=== PATIENT | female | born 1990 | race Hispanic/Latino ===

== ENCOUNTER 2016-05-13 18:47 | Emergency (ER) | payer OTHER ==
[~2016-05-13] VITALS: Ht 152.4 cm; Wt 52.6 kg
[~2016-05-13 18:47] MED LIST: CIPRO500 M1 PO; PYRIDIUM200 M1 PO
--- NOTE | 2016-05-13 19:54 | ED INFLUENZA/URI COMPLAINT ---
History of Present Illness General Chief Complaint: General Adult Stated Complaint: ?; FLU SYMPTOMS Source: patient Exam Limitations: language barrier Vital Signs & Intake/Output Vital Signs & Intake/Output Vital Signs Date Time Temp Pulse Resp B/P Pulse O2 O2 Flow FiO2 Ox Delivery Rate 05/13 2143 100.8 99 16 118/67 96 Room Air 05/13 2119 98 Room Air 05/13 1911 100.6 116 20 123/73 97 Room Air Allergies Coded Allergies: aspirin (Mild, ITCHING 05/13/16) Reconcile Medications Oseltamivir Phosphate (Tamiflu) 75 MG CAPSULE 1 CAP PO BID influenza Triage Note: TRIAGE: PT TO ER WITH C/C RUNNY NOSE, COUGHING AND BODY ACHES. COUGH HAS BEEN NON PRODUCTIVE. ONSET OF S/S WEDNESDAY. PT IS CURRENTLY , ?3-4 WEEKS , HAD +HOME TEST YESTERDAY. LMP 04/11/2016. /M1. Triage Nurses Notes Reviewed? yes Onset: Abrupt Duration: day(s): Timing: recent history Severity: moderate, severe No Modifying Factors: none : Yes Patient currently breastfeeds: No HPI: 26-year-old female comes into emergency room with complaints of runny nose congestion fever chills body aches cough has been going on for the past couple days. Patient reports that she also took a test yesterday that was positive. Patient comes in for further evaluation requesting ultrasound and blood work. Denies any abdominal pain and vaginal discharge or leakage of fluid. Denies any other associated symptoms. (INGRID HENSLEY) Past History Travel History Traveled to [place] past 21 day No Medical History Any Pertinent Medical History? 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 No (INGRID HENSLEY) Review of Systems Review of Systems Constitutional: Reports: see HPI. EENTM: Reports: see HPI. Respiratory: Reports: see HPI. Cardiovascular: Reports: no symptoms. GI: Reports: no symptoms. Genitourinary: Reports: no symptoms. Musculoskeletal: Reports: no symptoms. Skin: Reports: no symptoms. Neurological/Psychological: Reports: no symptoms. Hematologic/Endocrine: Reports: no symptoms. Immunologic/Allergic: Reports: no symptoms. All Other Systems: Reviewed and Negative (INGRID HENSLEY) Physical Exam Physical Exam General Appearance: well developed/nourished, no apparent distress, alert Head: atraumatic, normal appearance Eyes: Bilateral: normal appearance, EOMI. Ears, Nose, Throat: normal ENT inspection, moist mucous membrane Neck: normal inspection, full range of motion Respiratory: normal breath sounds, no respiratory distress Cardiovascular: regular rate/rhythm Gastrointestinal: normal bowel sounds, soft, non-tender Back: normal inspection Extremities: normal inspection, normal range of motion Neurologic/Psych: awake, alert, oriented x 3, normal gait, normal mood/affect Skin: intact, normal color Core Measures Severe Sepsis Present: No Septic Shock Present: No (INGRID HENSLEY) Progress Differential Diagnosis: influenza, meningitis, neutropenia, otitis, pneumonia, pharyngitis, sinusitis, ectopic , intrauterine , miscarriage, Plan of Care: Orders Procedure Date/time Status Add-on Test (ER Only) 05/13 2133 Active URINALYSIS 05/13 210 Complete URINE 05/13 2010 Complete HUMAN BETA HCG TITRE 05/13 2003 Complete COMPREHENSIVE METABOLIC PANEL 05/13 2003 Complete CBC WITHOUT DIFFERENTIAL 05/13 2003 Complete RHOGAM WORK-UP 05/13 2003 Complete RAPID VIRAL INFLUENZA A 05/13 1904 Complete Laboratory Tests 05/13/16 2110: Anion Gap 12, Estimated GFR > 60, BUN/Creatinine Ratio 6.7 L, Glucose 93, Calcium 8.8, Total Bilirubin 0.3, AST 19, ALT 29, Alkaline Phosphatase 68, Total Protein 7.5, Albumin 4.2, Globulin 3.3, Albumin/Globulin Ratio 1.3, Beta HCG, Quant 746.2, CBC w Diff NO MAN DIFF REQ, RBC 4.27, MCV 85.1, MCH 29.0, RDW 13.2, MPV 9.6, Gran % 78.8 H, Lymphocytes % 12.0 L, Monocytes % 9.0, Eosinophils % 0 , Basophils % 0.2, Absolute Granulocytes 3.8, Absolute Lymphocytes 0.6 L, Absolute Monocytes 0.4, Absolute Eosinophils 0, Absolute Basophils 0, PUBS MCHC 34.1 05/13/162100: Urinalysis LIGHT H, Urine Color YEL, Urine Clarity HAZY H, Urine pH 7.0, Ur Specific [place] 1.010, Urine Protein NEG, Urine Ketones NEG, Urine Nitrite NEG, Urine Bilirubin NEG, Urine Urobilinogen 0.2, Ur Leukocyte Esterase SMALL H, Ur Microscopic SEDIMENT EXAMINED, Urine RBC 3-5, Urine WBC 3-5 H, Ur Epithelial Cells MOD H, Urine Hemoglobin LARGE H, Urine Glucose NEG, Urine Test POSITIVE Diagnostic Imaging: Viewed by Me: Ultrasound. Discussed w/RAD: Ultrasound. Radiology Impression: SERVICE DATE: 05/13/16 EXAM TYPE: US - US TRANSVAG EXAMINATION: ULTRASOUND PELVIC, COMPLETE CLINICAL INFORMATION: Positive test yesterday. Patient requests ultrasound. COMPARISON: Pelvic ultrasound 04/07/2011. TECHNIQUE: Transvaginal: Used to better visualize pelvic structures Transabdominal: Not adequate for visualization Spectral Doppler and color Doppler exam was utilized. LMP: Uncertain FINDINGS: UTERUS: No intrauterine . Uterus is unremarkable. Uterus measures 7.8 x 4.3 x 4.5 cm. Cervical length 2.9 cm. Endometrial thickness 0.75 cm. ADNEXA: Ovarian vascularity:Doppler demonstrates both arterial and venous vascular flow in the right and left ovary. No evidence of ovarian torsion. Right Ovary: Corpus luteum cyst in right ovary measuring 0.9 x 0.7 x 1.2 cm. The right ovary measures 3.5 x 1.7 x 2.3 cm. Volume 7 mL. Left Ovary: Unremarkable. Left measures 1.9 x 1.1 x 1.8 cm. Cul-de-sac: No Fluid IMPRESSION: Normal ultrasound of pelvis. No intrauterine . DICTATED BY: TOAN DUVALL MD DATE/TIME DICTATED:05/13/162249 WOUND CARE COORDINATOR:VICTORIA DATE/TIME TRANSCRIBED:05/13/162249 Initial ED EKG: none (INGRID HENSLEY) Departure Departure Disposition: HOME OR SELF CARE Condition: Stable Clinical Impression Primary Impression: Influenza Secondary Impressions: Positive test Referrals: KIM ORNELAS,ERIKA Bullock PATIENT HAS NO PRIMARY CARE DR (PCP/Family) Additional Instructions: Take Tamiflu as prescribed and Tylenol. Rest. Drink plenty of fluids. Follow- up with [employer] doctor provided. Return if any other concerns worsening symptoms. Please go over all results of today's visit with your primary care doctor. Contact your primary care doctor to let them know you were here in the emergency room. There may be nonspecific findings which may not be related to your visit today here in the emergency room but may require further evaluation and chronic monitoring by your primary care doctor. If you had a laceration today the chance of foreign body always remains. You should follow-up with your primary care doctor for recheck in 3-5 days for a wound check. If you had an x-ray done there is a chance that a fracture could have been missed on initial read and you should follow-up with your primary care doctor for repeat x-rays if symptoms persist. If your blood pressure was elevated here in the emergency room please have rechecked by her primary care doctor within the next 48 hours by your primary care doctor. If you were prescribed a narcotic here in the emergency room or any type of controlled substances you're not allowed to drive while taking this medication or operate any type of heavy machinery. Narcotics can make you feel lightheaded dizziness nausea and can cause constipation. You may need to nut picker a stool softener. Thank you for choosing [facility] emergency room. Please return to the emergency room immediately if you have any other concerns worsening of symptoms. Departure Forms: Customer Survey General Discharge Information Prescriptions: Current Visit Scripts Oseltamivir Phosphate (Tamiflu) 1 CAP PO BID #10 CAP Comments Patient clinically looks well. 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 Patient has a Quant level that is below 1 thousand and I explained to her that it is normal that nothing maY show up on the ultrasound at this time because she is too early on in the . Patient will follow-up with her [employer] doctor. Return if any other concerns. (INGRID HENSLEY) PA/SAP CRM DEVELOPER Co-Sign Statement Statement: ED Attending supervision documentation- [] I saw and evaluated the patient. I have also reviewed all the pertinent lab results and diagnostic results. I agree with the findings and the plan of care as documented in the PA's/SAP CRM DEVELOPER's documentation. [X] I have reviewed the ED Record and agree with the PA's/SAP CRM DEVELOPER's documentation. [] Additions or exceptions (if any) to the PAs/SAP CRM DEVELOPER's note and plan are summarized below: [] (LAURIE ORNELAS,MELISSA)
[2016-05-13 21:39] LABS: ABSOLUTE BASOPHIL COUNT 0 /CUMM (0.0-0.2); ABSOLUTE EOSINOPHIL COUNT 0 /CUMM (0.0-0.7); ABSOLUTE GRANULOCYTE CT 3.8 /CUMM (1.4-6.5); ABSOLUTE LYMPH COUNT 0.6 /CUMM (1.2-3.4); ABSOLUTE MONOCYTE COUNT 0.4 /CUMM (0.10-0.60); BASOPHIL % 0.2 % (0.0-2.0); EOSINOPHIL % 0 % (0-5); GRANULOCYTE % 78.8 % (42.2-75.2); HEMATOCRIT 36.4 % (37-47); MEAN CORPUSCULAR HGB CONC 34.1 G/DL (33.0-37.0); MEAN CORPUSCULAR VOLUME 85.1 FL (81.0-99.0); MEAN PLATELET VOLUME 9.6 FL (7.4-10.4); PLATELET COUNT 191 /CUMM (130-400); RBC DISTRIBUTION WIDTH 13.2 % (11.5-14.5); RED BLOOD CELL CT 4.27 /CUMM (4.20-5.40); WHITE BLOOD CELL COUNT 4.9 /CUMM (4.8-10.8)
[2016-05-13 21:44] VITALS: BP 118/67
[2016-05-13] MEDS ORDERED: TAMIFLU75 M1 PO (22:30)
--- NOTE | 2016-05-13 22:57 | ULTRASOUND REPORT ---
EXAMINATION: ULTRASOUND PELVIC, COMPLETE CLINICAL INFORMATION: Positive test yesterday. Patient requests ultrasound. COMPARISON: Pelvic ultrasound 04/07/2011. TECHNIQUE: Transvaginal: Used to better visualize pelvic structures Transabdominal: Not adequate for visualization Spectral Doppler and color Doppler exam was utilized. LMP: Uncertain FINDINGS: UTERUS: No intrauterine . Uterus is unremarkable. Uterus measures 7.8 x 4.3 x 4.5 cm. Cervical length 2.9 cm. Endometrial thickness 0.75 cm. ADNEXA: Ovarian vascularity:Doppler demonstrates both arterial and venous vascular flow in the right and left ovary. No evidence of ovarian torsion. Right Ovary: Corpus luteum cyst in right ovary measuring 0.9 x 0.7 x 1.2 cm. The right ovary measures 3.5 x 1.7 x 2.3 cm. Volume 7 mL. Left Ovary: Unremarkable. Left measures 1.9 x 1.1 x 1.8 cm. Cul-de-sac: No Fluid IMPRESSION: Normal ultrasound of pelvis. No intrauterine .
== END 2016-05-13 23:12 ==
LOC: ERH 18:47
PROVIDERS: Physician Assistant Medical
DX: J11.1 Influenza due to unidentified influenza virus with other respiratory manifestations (principal); Z32.01 Encounter for pregnancy test, result positive
CPT/HCPCS: 76817; 81001; 81025; 87804; 87804-59